=== PATIENT | female | born 1995 | race Caucasian/White ===

== ENCOUNTER 2018-09-12 07:41 | Emergency (ER) | payer MEDICAID ==
[~2018-09-12] VITALS: Ht 162.6 cm; Wt 122.5 kg
--- NOTE | 2018-09-12 08:03 | NUR ---
Dr Deleon at the bedside for MSE.
--- NOTE | 2018-09-12 08:13 | NUR ---
Patient discharged to home in stable conditon. Written and verbal after care instructions given. Patient verbalizes understanding of instructions.
[2018-09-12 08:15] VITALS: BP 144/87
== END 2018-09-12 08:16 | disposition home or self-care (01) ==
LOC: ER 07:41
DX: H11.32 Conjunctival hemorrhage, left eye (principal); F17.290 Nicotine dependence, other tobacco product, uncomplicated; Z88.8 Allergy status to other drugs, medicaments and biological substances
CPT/HCPCS: A4663

== ENCOUNTER 2018-10-05 03:58 | Emergency (ER) | payer MEDICAID ==
[~2018-10-05] VITALS: Ht 160 cm; Wt 119.7 kg
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
--- NOTE | 2018-10-05 04:29 | NUR ---
Patient taken to CT scan.
[2018-10-05] MEDS ORDERED: OXYCODONE/APAP 5-325 MG TABLET PO ONE (04:30)
[2018-10-05] MEDS ORDERED: ONDANSETRON ODT 4 MG TAB.RAPDIS SL ONE (04:30)
[2018-10-05] MEDS ORDERED: ONDANSETRON ODT 4 MG TAB.RAPDIS ONE (04:37)
[2018-10-05] MEDS ORDERED: OXYCODONE/APAP 5-325 MG TABLET ONE (04:37)
--- NOTE | 2018-10-05 05:25 | NUR ---
Patient discharged to home in stable conditon. Written and verbal after care instructions given. Patient verbalizes understanding of instructions. Patient ambulated out of ER with stable gait. Patient instructed not to drive.
[2018-10-05 05:27] VITALS: BP 110/82
== END 2018-10-05 05:27 | disposition home or self-care (01) ==
LOC: ER 03:59
DX: S00.83XA Contusion of other part of head, initial encounter (principal); F17.200 Nicotine dependence, unspecified, uncomplicated; Z88.1 Allergy status to other antibiotic agents; Z88.8 Allergy status to other drugs, medicaments and biological substances; Y04.2XXA Assault by strike against or bumped into by another person, initial encounter; Y93.89 Activity, other specified; Y92.89 Other specified places as the place of occurrence of the external cause; Y99.8 Other external cause status
CPT/HCPCS: 70450; A4663; Q0162

== ENCOUNTER 2018-11-21 12:25 | Emergency (ER) | payer MEDICAID ==
[~2018-11-21] VITALS: Ht 162.6 cm; Wt 115.7 kg
--- NOTE | 2018-11-21 12:51 | NUR ---
PT IS IN ROOM #1A. DR MORATAYA EVALUATED THE PT.
[2018-11-21] MEDS ORDERED: IBUPROFEN 600 MG TABLET ONE (12:56)
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
[2018-11-21] MEDS ORDERED: IBUPROFEN 600 MG TABLET PO ONE (13:00)
--- NOTE | 2018-11-21 13:33 | NUR ---
ACCORDING TO DR KIMBROUGH ORDER [employer] NON EMERGENCY DISPATCHER WAS CALLED. TALKED TO DISPATCHER #[id number].
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
--- NOTE | 2018-11-21 15:15 | NUR ---
Pt spoke with social psychologist and JONATHON (who came in person to speak with the pt). Patient discharged to home in stable conditon. Written and verbal after care instructions given. Patient verbalized understanding of instructions. Pt stated she will take the bus home.
== END 2018-11-21 15:17 | disposition home or self-care (01) ==
LOC: ER 12:25
DX: S40.012A Contusion of left shoulder, initial encounter (principal); S40.022A Contusion of left upper arm, initial encounter; F17.200 Nicotine dependence, unspecified, uncomplicated; Z88.8 Allergy status to other drugs, medicaments and biological substances; Y04.0XXA Assault by unarmed brawl or fight, initial encounter; Y93.89 Activity, other specified; Y92.89 Other specified places as the place of occurrence of the external cause; Y99.8 Other external cause status
CPT/HCPCS: 73010; 73060; A4663

== ENCOUNTER 2019-03-16 04:53 | Emergency (ER) | payer MEDICAID ==
[~2019-03-16] VITALS: Ht 162.6 cm; Wt 117.9 kg
[2019-03-16] MEDS ORDERED: CLON1TAB PO (05:04)
[2019-03-16] MEDS ORDERED: ARIP300S3 IM (05:04)
--- NOTE | 2019-03-16 05:13 | NUR ---
Dr. Plascencia at bedside for MSE.
--- NOTE | 2019-03-16 05:28 | NUR ---
Patient discharged to home in stable conditon. Written and verbal after care instructions given. Patient verbalizes understanding of instructions. Pt ambulated out of ER with steady gait, no acute signs of distress, VSS, all belongings taken.
[2019-03-16 05:29] VITALS: BP 159/98
== END 2019-03-16 05:30 | disposition home or self-care (01) ==
LOC: ER 04:55
DX: R00.2 Palpitations (principal); F15.10 Other stimulant abuse, uncomplicated; F41.9 Anxiety disorder, unspecified; F32.9 Major depressive disorder, single episode, unspecified; I10 Essential (primary) hypertension; F17.200 Nicotine dependence, unspecified, uncomplicated; Z88.8 Allergy status to other drugs, medicaments and biological substances; Z79.899 Other long term (current) drug therapy
CPT/HCPCS: 93005; A4663

== ENCOUNTER 2019-08-17 07:36 | Emergency (ER) | payer MEDICAID ==
[~2019-08-17] VITALS: Ht 160 cm; Wt 127.0 kg
[~2019-08-17 07:36] MED LIST: ARIP300S3 IM; CLON1TAB PO
[2019-08-17] MEDS ORDERED: DEXAMETHASONE SOD PHOSPHATE 4 MG INJ IM ONE (08:00)
[2019-08-17] MEDS ORDERED: IPRATROPIUM BROMIDE 0.5 MG/2.5 ML NEBU NEB ONE (08:00)
[2019-08-17] MEDS ORDERED: ALBUTEROL SULFATE 2.5 MG/3 ML NEBU NEB ONE (08:00)
[2019-08-17] MEDS ORDERED: ACETAMINOPHEN ES 500 MG TABLET PO ONE (08:00)
[2019-08-17] MEDS ORDERED: IBUPROFEN 800 MG TABLET PO ONE (08:00)
[2019-08-17] MEDS ORDERED: IBUPROFEN 800 MG TABLET ONE (08:18)
[2019-08-17] MEDS ORDERED: DEXAMETHASONE SOD PHOSPHATE 10 MG INJ ONE (08:19)
[2019-08-17] MEDS ORDERED: ACETAMINOPHEN ES 500 MG TABLET ONE (08:19)
--- NOTE | 2019-08-17 08:26 | NUR ---
pt is in room #1b. dr nagel evaluated the pt.
[2019-08-17] MEDS ORDERED: ALBUTEROL SULFATE 2.5 MG/3 ML NEBU ONE (08:44)
[2019-08-17] MEDS ORDERED: IPRATROPIUM BROMIDE 0.5 MG/2.5 ML NEBU ONE (08:44)
--- NOTE | 2019-08-17 09:17 | NUR ---
PT WAS D/C'd TO HOME AFTER DR BANGURA RE-EVALUATION. D/C INSTRUCTIONSGIVEN TO THE PT BY DR BANGURA.
[2019-08-17 09:19] VITALS: BP 137/81
== END 2019-08-17 09:19 | disposition home or self-care (01) ==
LOC: ER 07:36
DX: J20.9 Acute bronchitis, unspecified (principal); J01.90 Acute sinusitis, unspecified; E66.01 Morbid (severe) obesity due to excess calories; F41.9 Anxiety disorder, unspecified; F32.9 Major depressive disorder, single episode, unspecified; F17.290 Nicotine dependence, other tobacco product, uncomplicated; Z71.6 Tobacco abuse counseling; Z68.42 Body mass index [BMI] 45.0-49.9, adult; Z88.8 Allergy status to other drugs, medicaments and biological substances; Z79.899 Other long term (current) drug therapy
CPT/HCPCS: 71046; 94664; 96372; 99283; 99406; J1100; A4663; A9150; J3590

== ENCOUNTER 2019-08-19 10:52 | Emergency (ER) | payer MEDICAID ==
[~2019-08-19] VITALS: Ht 160 cm; Wt 127.0 kg
[2019-08-19] MEDS ORDERED: ALBUTEROL SULFATE 2.5 MG/3 ML NEBU NEB ONE (11:15)
[2019-08-19] MEDS ORDERED: IPRATROPIUM BROMIDE 0.5 MG/2.5 ML NEBU NEB ONE (11:15)
[2019-08-19] MEDS ORDERED: predniSONE 10 MG TABLET PO ONE (11:15)
[2019-08-19] MEDS ORDERED: KETOROLAC TROMETHAMINE 15 MG INJ IM ONE (11:15)
[2019-08-19] MEDS ORDERED: predniSONE 50 MG TABLET ONE (11:16)
[2019-08-19] MEDS ORDERED: predniSONE 10 MG TABLET ONE (11:16)
[2019-08-19] MEDS ORDERED: KETOROLAC TROMETHAMINE 15 MG INJ ONE (11:16)
[2019-08-19] MEDS ORDERED: IPRATROPIUM BROMIDE 0.5 MG/2.5 ML NEBU ONE (11:19)
[2019-08-19] MEDS ORDERED: ALBUTEROL SULFATE 2.5 MG/3 ML NEBU ONE (11:19)
--- NOTE | 2019-08-19 11:54 | NUR ---
Patient discharged to home in stable conditon. Written and verbal after care instructions given. Patient verbalizes understanding of instructions.pot walks in steady gait .pt says feels better. no sign of resp distress.
== END 2019-08-19 11:56 | disposition home or self-care (01) ==
LOC: ER 10:52
DX: J40 Bronchitis, not specified as acute or chronic (principal); F41.9 Anxiety disorder, unspecified; F32.9 Major depressive disorder, single episode, unspecified; F17.200 Nicotine dependence, unspecified, uncomplicated; Z88.8 Allergy status to other drugs, medicaments and biological substances; Z79.899 Other long term (current) drug therapy
CPT/HCPCS: 96372; 99283; J1885; J7512 ×2; A4663; J3590

== ENCOUNTER 2019-08-22 11:12 | Emergency (ER) | payer MEDICAID ==
[~2019-08-22] VITALS: Ht 160 cm; Wt 125.2 kg
--- NOTE | 2019-08-22 11:56 | NUR ---
PT IS IN ROOM #2B. DR THOMSON EVALUATED THE PT.
[2019-08-22 12:13] LABS: *MONOTEST NEGATIVE (NEGATIVE)
--- NOTE | 2019-08-22 12:23 | NUR ---
PT WAS D/C'd TO HOME. D/C INSTRUCTIONS GIVEN TO THE PT.
[2019-08-22 12:24] VITALS: BP 139/88
== END 2019-08-22 12:25 | disposition home or self-care (01) ==
LOC: ER 11:14
DX: J06.9 Acute upper respiratory infection, unspecified (principal); F32.9 Major depressive disorder, single episode, unspecified; F41.9 Anxiety disorder, unspecified; F17.200 Nicotine dependence, unspecified, uncomplicated; Z88.8 Allergy status to other drugs, medicaments and biological substances; Z79.899 Other long term (current) drug therapy
CPT/HCPCS: 36415; 86308; A4663

== ENCOUNTER 2019-10-12 17:58 | Emergency (ER) | payer MEDICAID ==
[~2019-10-12] VITALS: Ht 160 cm; Wt 127.0 kg
[2019-10-12] MEDS ORDERED: ALPRAZOLAM 0.5 MG TABLET ONE (18:27)
--- NOTE | 2019-10-12 18:27 | NUR ---
Patient was told and emphasis was given on following up with her primary doctors for anti-anxiety issues & anti-anxiety prescriptions. Excuse for work was given per patient's request. Patient discharged to home in stable condition with brisk steady gait. Written and verbal after care instructions were given to patient. Patient verbalized understanding and compliance of instructions. Patient said that she will not be driving home from our ER department.
[2019-10-12] MEDS ORDERED: ALPRAZOLAM 0.25 MG TABLET PO ONE (18:30)
== END 2019-10-12 18:31 | disposition home or self-care (01) ==
LOC: ER 18:00
DX: F41.9 Anxiety disorder, unspecified (principal); F32.9 Major depressive disorder, single episode, unspecified; F17.290 Nicotine dependence, other tobacco product, uncomplicated; Z88.8 Allergy status to other drugs, medicaments and biological substances; Z79.899 Other long term (current) drug therapy
CPT/HCPCS: A4663

== ENCOUNTER 2019-10-19 19:35 | Emergency (ER) | payer MEDICAID ==
[~2019-10-19] VITALS: Ht 160 cm; Wt 124.7 kg
[2019-10-19] MEDS ORDERED: IPRATROPIUM BROMIDE 0.5 MG/2.5 ML NEBU ONE (20:27)
[2019-10-19] MEDS ORDERED: ALBUTEROL SULFATE 2.5 MG/ 0.5 ML NEBU ONE (20:27)
[2019-10-19] MEDS ORDERED: ALBUTEROL SULFATE 2.5 MG/3 ML NEBU NEB ONE (20:30)
[2019-10-19] MEDS ORDERED: ACETAMINOPHEN ES 500 MG TABLET PO ONE (20:30)
[2019-10-19] MEDS ORDERED: GUAIFENESIN/CODEINE 5 ML LIQUID UDC PO ONE (20:30)
[2019-10-19] MEDS ORDERED: IPRATROPIUM BROMIDE 0.5 MG/2.5 ML NEBU NEB ONE (20:30)
[2019-10-19] MEDS ORDERED: predniSONE 10 MG TABLET PO ONE (20:30)
[2019-10-19] MEDS ORDERED: GUAIFENESIN/CODEINE 5 ML LIQUID UDC ONE (20:34)
[2019-10-19] MEDS ORDERED: predniSONE 20 MG TABLET ONE (20:34)
[2019-10-19] MEDS ORDERED: ACETAMINOPHEN ES 500 MG TABLET ONE (20:35)
--- NOTE | 2019-10-19 20:36 | NUR ---
PT IS IN ROOM #4A. DR FLOWERS EVALUATED THE PT.
--- NOTE | 2019-10-19 21:07 | NUR ---
PT WAS D/C'd TO HOME. D/C INSTRUCTIONS GIVEN TO THE PT BY DR FLOWERS
[2019-10-19 21:08] VITALS: BP 142/71
[2019-10-23] MEDS ORDERED: GUAI5SYR4 PO (16:48)
[2019-10-23] MEDS ORDERED: ALBU6.7H9 INH (16:48)
[2019-10-23] MEDS ORDERED: METH4TAB3 PO (16:48)
[2019-10-23] MEDS ORDERED: LEVO500T2 PO (16:48)
== END 2019-10-19 21:09 | disposition home or self-care (01) ==
LOC: ER 19:36
DX: J20.9 Acute bronchitis, unspecified (principal); F41.9 Anxiety disorder, unspecified; F33.9 Major depressive disorder, recurrent, unspecified; F17.290 Nicotine dependence, other tobacco product, uncomplicated; Z79.899 Other long term (current) drug therapy; Z71.6 Tobacco abuse counseling
CPT/HCPCS: 71045; 87400; 94640; 99284; 99406; J7512; A4663; A9150; J3590

== ENCOUNTER 2019-10-22 15:31 | Inpatient (IN) | payer OTHER ==
[~2019-10-22] VITALS: Ht 160 cm; Wt 101.6 kg
[2019-10-22] MEDS ORDERED: ALBUTEROL SULFATE 2.5 MG/3 ML NEBU NEB ONE ×2 (16:00→18:15)
[2019-10-22] MEDS ORDERED: IPRATROPIUM BROMIDE 0.5 MG/2.5 ML NEBU NEB ONE ×2 (16:00→18:15)
--- NOTE | 2019-10-22 16:12 | NUR ---
ERMD AT BEDSIDE FOR HX AND PHYSICAL PT AOX3 ABLE TO SPEAK CLEAR AND COMPLETE SENTENCES PT C/O COUGH, PRODUCTIVE AND CHEST CONGESTION PT DENIES FEVER/CHILLS DENIES RECENT TRAVELS
[2019-10-22] MEDS ORDERED: ALBUTEROL SULFATE 2.5 MG/3 ML NEBU ONE ×2 (16:18→18:20)
[2019-10-22] MEDS ORDERED: ALBUTEROL SULFATE 2.5 MG/ 0.5 ML NEBU ONE (16:18)
[2019-10-22] MEDS ORDERED: IPRATROPIUM BROMIDE 0.5 MG/2.5 ML NEBU ONE ×2 (16:18→18:20)
--- NOTE | 2019-10-22 16:25 | NUR ---
RT BREATHING TX STARTED
[2019-10-22] MEDS ORDERED: methylPREDNISolone SOD SUCC 125 MG/2 ML VIAL IV ONE (17:30)
[2019-10-22] MEDS ORDERED: MAGNESIUM SULFATE 2 GM in IV DEXTROSE 5% 100 ML IV ONE (17:30)
--- NOTE | 2019-10-22 17:35 | NUR ---
pt reports currently not taking any medications - she was on prednisone 40mg daily x 5d - prescribed on 10/19/19.
[2019-10-22 17:47] LABS: BASOPHILS # (AUTO) 0.1 K/uL (0.0-8.0); BASOPHILS % (AUTO) 0.7 % (0.0-2.0); EOSINOPHILS # (AUTO) 0.3 K/uL (0.0-0.7); HEMATOCRIT 46.7 % (31.2-41.9); HEMOGLOBIN 15.9 g/dL (10.9-14.3); LYMPHOCYTES # (AUTO) 3.9 K/uL (20.0-40.0); LYMPHOCYTES % (AUTO) 30.3 % (20.5-51.5); MEAN CORPUSCULAR HEMOGLOBIN 30.8 uug (24.7-32.8); MEAN CORPUSCULAR HGB CONC 34 g/dL (32.3-35.6); MEAN CORPUSCULAR VOLUME 90.5 fL (75.5-95.3); MONOCYTES # (AUTO) 0.8 K/uL (2.0-10.0); MONOCYTES % (AUTO) 6.5 % (0.0-11.0); NEUTROPHILS # (AUTO) 7.8 K/uL (1.8-8.9); NEUTROPHILS % (AUTO) 60.5 % (38.5-71.5); PLATELET COUNT (AUTO) 253 K/uL (179-408); RED BLOOD CELL COUNT(AUTO) 5.16 MIL/uL (3.63-4.92); WHITE BLOOD COUNT (AUTO) 12.9 K/uL (3.8-11.8)
[2019-10-22 17:54] LABS: CREATININE 0.9 mg/dL (0.6-1.3); POTASSIUM 3.6 mmol/L (3.5-5.1)
[2019-10-22] MEDS ORDERED: AZITHROMYCIN IV 500 MG in IV DEXTROSE 5% 250 ML IV ONE (18:15)
[2019-10-22] MEDS ORDERED: IV NORMAL SALINE 1000 ML BAG IV ONE (18:15)
[2019-10-22] MEDS ORDERED: CEFTRIAXONE 1 G in IV DEXTROSE 5% 50 ML IV ONE (18:15)
--- NOTE | 2019-10-22 18:15 | NUR ---
paged epic(veronika)
[2019-10-22] MEDS ORDERED: MAGNESIUM SULFATE 1 GM/2 ML VIAL ONE (18:19)
[2019-10-22] MEDS ORDERED: methylPREDNISolone SOD SUCC 125 MG/2 ML VIAL ONE (18:19)
--- NOTE | 2019-10-22 18:35 | NUR ---
WAITING BED AVAILABILITY OK FOR DR ASHUTOSH SEGUNDO TELE RM ADMIT DX: SOB/ PNEUMONIA
[2019-10-22] MEDS ORDERED: AZITHROMYCIN 500MG/ D5W 250ML IVPB **ER PYXIS ONLY IV ONE (18:40)
[2019-10-22] MEDS ORDERED: CEFTRIAXONE /D5W 50ML IVPB **ER PYXIS IV ONE (18:41)
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
--- NOTE | 2019-10-22 19:08 | NUR ---
[facility] (TELE) STILL NOT AVAILABLE FOR HAND OFF. WILL CALL BACK
[2019-10-22] MEDS ORDERED: ONDANSETRON ODT 4 MG TAB.RAPDIS SL PRN (19:30)
--- NOTE | 2019-10-22 19:48 | NUR ---
Report given to Razia Bryson RN Tele.
[2019-10-22] MEDS ORDERED: ONDANSETRON 4 MG/2 ML VIAL IV PRN (20:15)
[2019-10-22] MEDS ORDERED: HYDROCODONE/APAP 5-325MG TABLET PO PRN (20:15)
[2019-10-22] MEDS ORDERED: CLONAZEPAM 0.5 MG TABLET PO PRN (20:15)
[2019-10-22 20:19] VITALS: BP 113/85
--- NOTE | 2019-10-22 20:30 | NUR ---
PATIENT RECEIVED FROM ER. ID BAND ON. BELONGING LIST COMPLETED. WILL COMPLETE ADMISSIONS PROCESS. PATIENT TACHY ON MONITOR. BP, O2 SAT ON 2L, RR, STABLE AT THIS TIME. WILL COMPLETE NS BOLUS AND ANTIBIOTICS BROUGHT UP WITH PATIENT FROM ER.
[2019-10-22] MEDS: methylPREDNISolone SOD SUCC 40 MG/ML VIAL IV SCH (22:00)
[2019-10-22] MEDS: ACETAMINOPHEN 325 MG TABLET PO PRN (22:01)
--- NOTE | 2019-10-22 22:01 | NUR ---
C/O PAIN. TYLENOL ADMINISTERED. TOLERATED WELL. WILL CONTINUE TO MONITOR.
[2019-10-22] MEDS ORDERED: VALACYCLOVIR HCL 500 MG TABLET PO ONE (23:00)
[2019-10-23 00:46] VITALS: BP 101/40
[2019-10-23] MEDS: LEVALBUTEROL HCL NEB 0.63 MG/3 ML NEBU NEB PRN ×3 (02:03→12:08)
[2019-10-23] MEDS: IPRATROPIUM BROMIDE 0.5 MG/2.5 ML NEBU NEB PRN ×3 (02:03→12:07)
[2019-10-23] MEDS: ACETAMINOPHEN 325 MG TABLET PO PRN (04:14)
--- NOTE | 2019-10-23 04:38 | NUR ---
PATIENT V/S WNL AND NO SIGNS OF ACUTE DISTRESS. C/O OF HEADACHE. TYLENOL ADMINISTERED. TOLERATED WELL. BED IN LOWEST POSITION, SIDE RAILS UP X2, CALL LIGHT WITHIN REACH. NSR ON TELE MONITOR. WILL CONTINUE TO MONITOR.
[2019-10-23 05:01] VITALS: BP 105/54
[2019-10-23] MEDS: methylPREDNISolone SOD SUCC 40 MG/ML VIAL IV SCH ×2 (06:10→13:31)
--- NOTE | 2019-10-23 06:15 | NUR ---
c/o of pain. norco administered. tolerated well.
[2019-10-23 06:21] LABS: BILIRUBIN,TOTAL 0.1 mg/dL (0.2-1.0); CREATININE 0.8 mg/dL (0.6-1.3); MAGNESIUM 2.3 mg/dL (1.8-2.4); PHOSPHOROUS 2.1 mg/dL (2.5-4.9); POTASSIUM 4.1 mmol/L (3.5-5.1); TOTAL PROTEIN, SERUM 7.6 g/dL (6.4-8.2)
[2019-10-23 06:23] LABS: BASOPHILS % (AUTO) 0.2 % (0.0-2.0); EOSINOPHILS % (AUTO) 0.1 % (0.0-7.0); HEMATOCRIT 42.3 % (31.2-41.9); HEMOGLOBIN 14.6 g/dL (10.9-14.3); LYMPHOCYTES % (AUTO) 11.6 % (20.5-51.5); MEAN CORPUSCULAR HEMOGLOBIN 31.2 uug (24.7-32.8); MEAN CORPUSCULAR HGB CONC 34 g/dL (32.3-35.6); MEAN CORPUSCULAR VOLUME 90.5 fL (75.5-95.3); MONOCYTES # (AUTO) 0.2 K/uL (2.0-10.0); MONOCYTES % (AUTO) 2.3 % (0.0-11.0); NEUTROPHILS # (AUTO) 7.5 K/uL (1.8-8.9); NEUTROPHILS % (AUTO) 85.8 % (38.5-71.5); PLATELET COUNT (AUTO) 245 K/uL (179-408); RED BLOOD CELL COUNT(AUTO) 4.68 MIL/uL (3.63-4.92); WHITE BLOOD COUNT (AUTO) 8.7 K/uL (3.8-11.8)
[2019-10-23] MEDS ORDERED: PANTOPRAZOLE SODIUM 40 MG TABLET.DR PO SCH (07:00)
--- NOTE | 2019-10-23 07:30 | NUR ---
PATIENT IN BED ASLEEP, EASY TO AWAKE. AOX4. DENIES SOB OR CHEST PAIN AT THIS TIME. CONTINUES TO COMPLAIN OF HEAD ACHE AFTER TAKING TYLENAL AND NORCO THIS AM. LEFT HAND IV INTACT AND FLUSHED. SAFETY AND FALL PREVENTION IN PLACE. CALL LIGHT IN REACH. BED IN LOW AND LOCKED POSITION. ALL NEEDS MET AT THIS TIME. WILL CONTINUE TO MONITOR.
[2019-10-23] MEDS ORDERED: MORPHINE SULFATE 2 MG/1 ML DISP.SYRIN IV PRN (09:30)
[2019-10-23 11:44] VITALS: BP 117/66
[2019-10-23] MEDS ORDERED: NEUTRA PHOS PACKET PO ONE (15:30)
[2019-10-23 16:09] VITALS: BP 110/68
--- NOTE | 2019-10-23 19:43 | NUR ---
PT DISCHARGED ASSISTED BY OIL PROCESS STILLMAN. DISCHARGED PACKET AND INSTRUCTIONS GIVEN. PT UNDERSTAND. PT ID BAND TAKEN OFF. BELONGING LIST GIVEN. PT IV TAKE OFF. PT IN NO ACUTE DISTRESS. PT STABLE.
--- NOTE | 2019-10-23 19:45 | NUR ---
PATIENT DISCHARGED TO HOME-SELF CARE. PATIENT LEFT IN STABLE CONDITION AND TOOK UBER TO HOME. DISCHARGE INSTRUCTIONS WENT OVER WITH PATIENT AND SENT HOME WITH PATENT. BELONGINGS LIST WENT OVER WITH PATIENT. IV REMOVED UPON DISCHARGE AND ARMBAND TAKEN OFF. PATIENT REFUSED TO HAVE PICTURE TAKEN OF RIGHT FOOT STATING THAT ITS HEALING OK AND DOES NOT WANT BANDAID REMOVED.
== END 2019-10-23 20:03 | disposition home or self-care (01) | DRG 193 ==
LOC: ER 15:32 → TELE3 19:08 → MEDSURG3 10-23 10:49
PROVIDERS: ADMIT Internal Medicine; ATTEND Internal Medicine
DX: J18.0 Bronchopneumonia, unspecified organism (principal); J96.01 Acute respiratory failure with hypoxia; F17.210 Nicotine dependence, cigarettes, uncomplicated; G25.81 Restless legs syndrome; E66.9 Obesity, unspecified; Z68.39 Body mass index [BMI] 39.0-39.9, adult; F31.9 Bipolar disorder, unspecified; Z87.11 Personal history of peptic ulcer disease; Z79.899 Other long term (current) drug therapy; J45.909 Unspecified asthma, uncomplicated; E87.8 Other disorders of electrolyte and fluid balance, not elsewhere classified
CPT/HCPCS: 36415; 70030-TC; 71045; 83605; 83735; 84100; 84443; 85025; 87040; 93005; 94640; A4663; G0378; J0456; J0696; J2920; J2930; J3475; J3590; J7060; J7614

== ENCOUNTER 2020-04-12 01:57 | Emergency (ER) | payer OTHER ==
[~2020-04-12] VITALS: Ht 160 cm; Wt 124.7 kg
[~2020-04-12 01:57] MED LIST changes: +ALBU6.7H9 INH; -ARIP300S3 IM; -CLON1TAB PO; +GUAI5SYR4 PO; +LEVO500T2 PO; +METH4TAB3 PO
[2020-04-12] MEDS ORDERED: CLON0.1T PO (02:15)
[2020-04-12] MEDS ORDERED: SUMA50TA PO (02:15)
--- NOTE | 2020-04-12 02:23 | NUR ---
at bedside for MSE
--- NOTE | 2020-04-12 02:36 | NUR ---
Patient discharged to home in stable condition. Noted ambulating with steady gait, took all belongings with her. Written and verbal after care instructions given. Patient verbalizes understanding of instructions. Stressed follow up or return to ER for worsening s/s.
[2020-04-12 02:40] VITALS: BP 120/89
== END 2020-04-12 02:40 | disposition home or self-care (01) ==
LOC: ER 01:58
DX: J02.9 Acute pharyngitis, unspecified (principal); Z20.828 Contact with and (suspected) exposure to other viral communicable diseases; Z88.8 Allergy status to other drugs, medicaments and biological substances; F17.200 Nicotine dependence, unspecified, uncomplicated; G25.81 Restless legs syndrome; F31.9 Bipolar disorder, unspecified; F90.9 Attention-deficit hyperactivity disorder, unspecified type; Z79.899 Other long term (current) drug therapy; R03.0 Elevated blood-pressure reading, without diagnosis of hypertension
CPT/HCPCS: 99283; U0003; A4663

== ENCOUNTER 2020-05-05 11:01 | Emergency (ER) | payer OTHER ==
[~2020-05-05] VITALS: Ht 160 cm; Wt 124.7 kg
[~2020-05-05 11:01] MED LIST changes: -ALBU6.7H9 INH; +CLON0.1T PO; -GUAI5SYR4 PO; -LEVO500T2 PO; -METH4TAB3 PO; +SUMA50TA PO
--- NOTE | 2020-05-05 12:33 | NUR ---
O2 sat remained 100% during in place walking test. pt tolerated well.
--- NOTE | 2020-05-05 12:43 | NUR ---
Patient discharged to home in stable condition. Written and verbal after care instructions given. Patient verbalizes understanding of instructions. Stressed follow up or return to ER for worsening s/s.pt walks in steady gait. no sign of resp distress.
[2020-05-05 12:45] VITALS: BP 131/88
== END 2020-05-05 12:46 | disposition home or self-care (01) ==
LOC: ER 11:01
DX: R50.9 Fever, unspecified (principal); R49.0 Dysphonia; Z20.828 Contact with and (suspected) exposure to other viral communicable diseases
CPT/HCPCS: 0099U; 36415; 71045; 86403; 87070; 87400; 87426; 99284; A4663

== ENCOUNTER 2020-10-21 08:00 | Emergency (ER) | payer OTHER ==
[~2020-10-21] VITALS: Ht 165.1 cm; Wt 123.8 kg
--- NOTE | 2020-10-21 08:04 | NUR ---
MD@[email or web address], medical screening exam in progress
[2020-10-21] MEDS ORDERED: PSEUDOEPHEDRINE HCL 30 MG TABLET PO ONE (08:30)
[2020-10-21] MEDS ORDERED: predniSONE 20 MG TABLET PO ONE (08:30)
[2020-10-21] MEDS ORDERED: predniSONE 20 MG TABLET ONE (08:33)
[2020-10-21] MEDS ORDERED: PSEUDOEPHEDRINE HCL 30 MG TABLET ONE (08:33)
[2020-10-21] MEDS ORDERED: PRED20TA PO ×2 (08:38→08:44)
[2020-10-21] MEDS ORDERED: [UNRECOGNIZED DRUG - CODE] PO ×2 (08:38→08:44)
--- NOTE | 2020-10-21 08:57 | NUR ---
Dcereased coughing heard. Patient is seen using her personal electronic device, [employer].
--- NOTE | 2020-10-21 08:58 | NUR ---
Patient discharged to home in stable condition with brisk steady gait. Written and verbal after care instructions given. Patient verbalizes understanding & compliance of instructions. Stressed follow up with her primary doctor or return to ER for worsening s/s.
== END 2020-10-21 08:59 | disposition home or self-care (01) ==
LOC: ER 08:00
DX: J06.9 Acute upper respiratory infection, unspecified (principal); Z20.822 Contact with and (suspected) exposure to COVID-19; Z87.891 Personal history of nicotine dependence; F31.9 Bipolar disorder, unspecified; Z87.01 Personal history of pneumonia (recurrent); G25.81 Restless legs syndrome; F90.9 Attention-deficit hyperactivity disorder, unspecified type
CPT/HCPCS: 71045; 87400; 87426; 99284; J7512; A4663

== ENCOUNTER 2021-08-29 11:42 | Emergency (ER) | payer OTHER ==
[~2021-08-29] VITALS: Ht 160 cm; Wt 122.5 kg
[~2021-08-29 11:42] MED LIST changes: +PRED20TA PO; +[UNRECOGNIZED DRUG - CODE] PO
[2021-08-29] MEDS ORDERED: IBUPROFEN 800 MG TABLET PO ONE (12:30)
[2021-08-29] MEDS ORDERED: BENZONATATE 100 MG CAPSULE PO ONE (12:30)
[2021-08-29] MEDS ORDERED: IBUPROFEN 800 MG TABLET ONE (12:40)
[2021-08-29] MEDS ORDERED: BENZONATATE 100 MG CAPSULE ONE (12:40)
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
[2021-08-29] MEDS ORDERED: BENZ-13 PO (13:05)
[2021-08-29] MEDS ORDERED: IBUP-1955 PO (13:05)
--- NOTE | 2021-08-29 13:12 | NUR ---
Patient discharged to home in stable condition. Written and verbal after care instructions given. Patient verbalizes understanding of instructions. Stressed follow up or return to ER for worsening s/s.
[2021-08-29 13:15] VITALS: BP 108/54
== END 2021-08-29 13:16 | disposition home or self-care (01) ==
LOC: ER 11:43
DX: T74.11XA Adult physical abuse, confirmed, initial encounter (principal); S49.92XA Unspecified injury of left shoulder and upper arm, initial encounter; Y04.0XXA Assault by unarmed brawl or fight, initial encounter; Y92.89 Other specified places as the place of occurrence of the external cause; Y07.03 Male partner, perpetrator of maltreatment and neglect; R05.9 Cough, unspecified; Z20.822 Contact with and (suspected) exposure to COVID-19; Z88.8 Allergy status to other drugs, medicaments and biological substances; F31.9 Bipolar disorder, unspecified; F90.9 Attention-deficit hyperactivity disorder, unspecified type; Z87.01 Personal history of pneumonia (recurrent); G25.81 Restless legs syndrome; Z87.891 Personal history of nicotine dependence
CPT/HCPCS: 73030; A4663

== ENCOUNTER 2022-07-16 18:45 | Emergency (ER) | payer OTHER ==
[~2022-07-16] VITALS: Ht 165.1 cm; Wt 129.7 kg
[~2022-07-16 18:45] MED LIST changes: +BENZ-13 PO; +IBUP-1955 PO
--- NOTE | 2022-07-16 20:20 | NUR ---
Dr. Arredondo at bedside. MSE in progress.
--- NOTE | 2022-07-16 20:40 | NUR ---
x-ray at bedside.
[2022-07-16] MEDS ORDERED: ALBU8.5H8 INH (21:43)
[2022-07-16] MEDS ORDERED: GUAI-671 PO ×2 (21:43→23:11)
--- NOTE | 2022-07-16 21:51 | NUR ---
A/O x4. NAD noted. Ambulatory with a steady gait. All belongings with patient. Patient discharged to home in stable condition. Written and verbal after care instructions given. Patient verbalizes understanding of instructions. Stressed follow up or return to ER for worsening s/s.
[2022-07-16 21:54] VITALS: BP 140/80
== END 2022-07-16 21:55 | disposition home or self-care (01) ==
LOC: ER 18:45
DX: U07.1 COVID-19 (principal); J40 Bronchitis, not specified as acute or chronic; F41.9 Anxiety disorder, unspecified; F31.9 Bipolar disorder, unspecified; G25.81 Restless legs syndrome; Z88.1 Allergy status to other antibiotic agents; Z88.8 Allergy status to other drugs, medicaments and biological substances
CPT/HCPCS: 71045; A4663

== ENCOUNTER 2023-04-08 13:48 | Emergency (ER) | payer OTHER ==
[~2023-04-08] VITALS: Ht 160 cm; Wt 127.0 kg
[~2023-04-08 13:48] MED LIST changes: +ALBU8.5H8 INH; +GUAI-671 PO
[2023-04-08 15:32] LABS: *BILIRUBIN,URIN NEGATIVE (NEGATIVE); *BLOOD, URINE NEGATIVE (NEGATIVE); *CLARITY,URINE CLEAR (CLEAR); *COLOR,URINE Other (YELLOW); *KETONES,URINE NEGATIVE (NEGATIVE); *PROTEIN,URINE NEGATIVE (NEGATIVE); *UROBILINOGEN,URINE 0.2 E.U./dl (NORMAL); LEUKOCYTE ESTERASE ,URINE 2+ (NEGATIVE); NITRITE, URINE NEGATIVE (NEGATIVE); UGLUCOSE NEGATIVE (NEGATIVE)
[2023-04-08 15:34] LABS: HIV-1 p24 ANTIGEN NON REACTIVE (NONREACTIVE); HIV-1/2 ANTIBODY NON REACTIVE (NONREACTIVE)
[2023-04-08 16:15] VITALS: BP 131/83; O2SAT 96
[2023-04-08 16:27] LABS: BACTERIA,URINE MANY /HPF (NONE SEEN); RBC,URINE NONE SEEN /HPF (0-3); SQUAMOUS EPITHELIAL CELL,UR MANY /HPF (NONE SEEN)
[2023-04-08] MEDS ORDERED: METOCLOPRAMIDE HCL 10 MG/2 ML VIAL ONE (16:27)
[2023-04-08] MEDS ORDERED: KETOROLAC TROMETHAMINE 30 MG INJ ONE (16:27)
[2023-04-08] MEDS ORDERED: METOCLOPRAMIDE HCL 10 MG/2 ML VIAL IM ONE (16:30)
[2023-04-08] MEDS ORDERED: KETOROLAC TROMETHAMINE 30 MG INJ IM ONE (16:30)
[2023-04-08] MEDS ORDERED: METO-295 PO (16:33)
[2023-04-08] MEDS ORDERED: ACET-3478 PO (16:33)
[2023-04-10 23:06] LABS: *CHLAMYDIA NAA Negative (Negative); *GC NAA Negative (Negative)
[2023-04-11 02:06] LABS: *TRIC.VAG. NAA Negative (Negative)
== END 2023-04-08 16:43 | disposition home or self-care (01) ==
LOC: ER 13:54
DX: T14.8XXA Other injury of unspecified body region, initial encounter (principal); M25.511 Pain in right shoulder; R10.2 Pelvic and perineal pain; Z88.1 Allergy status to other antibiotic agents; Z88.8 Allergy status to other drugs, medicaments and biological substances; Z79.899 Other long term (current) drug therapy; Z79.1 Long term (current) use of non-steroidal anti-inflammatories (NSAID); Y04.2XXA Assault by strike against or bumped into by another person, initial encounter; Y93.89 Activity, other specified; Y92.89 Other specified places as the place of occurrence of the external cause; Y99.8 Other external cause status
CPT/HCPCS: 99284; 86592; 81001; 87806; 84702; 72170; 73030; 96372 ×2; 87491; 87536; J1885; J2765; A4663

== ENCOUNTER 2023-06-03 20:38 | Emergency (ER) | payer MEDICAID, OTHER ==
[~2023-06-03] VITALS: Ht 160 cm; Wt 127.0 kg
[~2023-06-03 20:38] MED LIST changes: +ACET-3478 PO; +METO-295 PO
[2023-06-03] MEDS ORDERED: ONDANSETRON 4 MG/2 ML VIAL IV ONE (21:00)
[2023-06-03] MEDS ORDERED: HYDROMORPHONE 1 MG/1 ML DISP.SYRIN IV ONE ×2 (21:00→22:45)
[2023-06-03] MEDS ORDERED: VANCOMYCIN IV 1,000 MG in IV DEXTROSE 5% 250 ML IV ONE (21:00)
[2023-06-03] MEDS ORDERED: ONDANSETRON 4 MG/2 ML VIAL ONE (21:09)
[2023-06-03] MEDS ORDERED: HYDROMORPHONE 1 MG/1 ML DISP.SYRIN ONE ×2 (21:09→22:42)
[2023-06-03] MEDS ORDERED: VANCOMYCIN IV 200 ML ONE (21:10)
[2023-06-03 21:50] LABS: BASOPHILS # (AUTO) 0.1 K/UL (0.0-0.2); BASOPHILS % (AUTO) 0.7 % (0.0-2.0); EOSINOPHILS # (AUTO) 0.3 K/uL (0.0-0.7); EOSINOPHILS % (AUTO) 2.9 % (0.0-7.0); HEMATOCRIT 30.7 % (31.2-41.9); HEMOGLOBIN 10.4 g/dL (10.9-14.3); LYMPHOCYTES # (AUTO) 1.8 K/uL (0.8-4.8); LYMPHOCYTES % (AUTO) 17.1 % (20.5-51.5); MEAN CORPUSCULAR HEMOGLOBIN 31.3 uug (24.7-32.8); MEAN CORPUSCULAR HGB CONC 34 g/dL (32.3-35.6); MEAN CORPUSCULAR VOLUME 92.9 fL (75.5-95.3); MONOCYTES # (AUTO) 0.5 K/uL (0.1-1.30); NEUTROPHILS % (AUTO) 74.3 % (38.5-71.5); PLATELET COUNT (AUTO) 305 K/uL (179-408); RED BLOOD CELL COUNT(AUTO) 3.31 MIL/uL (3.63-4.92); RED CELL DISTRIBUTION WIDTH 13.9 % (12.3-17.7); WHITE BLOOD COUNT (AUTO) 10.7 K/uL (3.8-11.8)
[2023-06-03 22:33] LABS: DIFFERENTIAL COMMENT 1
[2023-06-03 22:40] LABS: CALCIUM 8.5 mg/dL (8.5-10.1); CREATININE 0.7 mg/dL (0.6-1.3); POTASSIUM 3.8 mmol/L (3.5-5.1)
[2023-06-03 23:25] VITALS: BP 132/78; TEMP 98.3; O2SAT 100
== END 2023-06-03 23:27 | disposition left against medical advice (07) ==
LOC: ER 20:38
DX: L03.317 Cellulitis of buttock (principal); T81.49XA Infection following a procedure, other surgical site, initial encounter; F17.210 Nicotine dependence, cigarettes, uncomplicated; Z71.6 Tobacco abuse counseling; Z88.8 Allergy status to other drugs, medicaments and biological substances; Z79.1 Long term (current) use of non-steroidal anti-inflammatories (NSAID); Z79.899 Other long term (current) drug therapy
CPT/HCPCS: 99284; 96365; 96375; 96366; 99406; 80048; 85025; 87040 ×2; 36415; 96376; J2405; J3370; J1170 ×2; A4606; A4663

== ENCOUNTER 2023-06-09 03:03 | Emergency (ER) | payer BC, MEDICAID ==
[~2023-06-09] VITALS: Ht 157.5 cm; Wt 127.0 kg
[2023-06-09] MEDS ORDERED: OXYC15TA46 PO (03:31)
[2023-06-09] MEDS ORDERED: bactrim PO (03:31)
[2023-06-09] MEDS ORDERED: IV NORMAL SALINE 1000 ML BAG IV ONE (04:00)
[2023-06-09] MEDS ORDERED: HYDROMORPHONE 1 MG/1 ML DISP.SYRIN IV ONE ×2 (04:00→05:45)
[2023-06-09] MEDS ORDERED: diphenhydrAMINE 50 MG/1 ML VIAL IV ONE (04:00)
[2023-06-09] MEDS ORDERED: diphenhydrAMINE 50 MG/1 ML VIAL ONE (04:25)
[2023-06-09] MEDS ORDERED: HYDROMORPHONE 1 MG/1 ML DISP.SYRIN ONE ×2 (04:25→05:42)
[2023-06-09] MEDS ORDERED: ONDANSETRON 4 MG/2 ML VIAL IV ONE ×2 (04:45→05:45)
[2023-06-09] MEDS ORDERED: ONDANSETRON 4 MG/2 ML VIAL ONE ×2 (04:47→05:42)
[2023-06-09] MEDS ORDERED: SWABABLE VALVE TRANSFER SET EA MC ONE (04:54)
[2023-06-09] MEDS ORDERED: IOHEXOL 300MG/ML 100 ML INFUS..BTL ONE (04:54)
[2023-06-09] MEDS ORDERED: IV NORMAL SALINE 250 ML IV ONE (04:55)
[2023-06-09 05:08] LABS: BASOPHILS # (AUTO) 0.1 K/UL (0.0-0.2); BASOPHILS % (AUTO) 1.2 % (0.0-2.0); EOSINOPHILS # (AUTO) 0.4 K/uL (0.0-0.7); EOSINOPHILS % (AUTO) 4.7 % (0.0-7.0); HEMATOCRIT 35.9 % (31.2-41.9); HEMOGLOBIN 12.3 g/dL (10.9-14.3); LYMPHOCYTES # (AUTO) 1.9 K/uL (0.8-4.8); MEAN CORPUSCULAR HEMOGLOBIN 31.4 uug (24.7-32.8); MEAN CORPUSCULAR HGB CONC 34 g/dL (32.3-35.6); MONOCYTES # (AUTO) 0.6 K/uL (0.1-1.30); MONOCYTES % (AUTO) 7.8 % (0.0-11.0); NEUTROPHILS # (AUTO) 4.9 K/uL (1.8-8.9); NEUTROPHILS % (AUTO) 62.3 % (38.5-71.5); PLATELET COUNT (AUTO) 337 K/uL (179-408); RED BLOOD CELL COUNT(AUTO) 3.91 MIL/uL (3.63-4.92); RED CELL DISTRIBUTION WIDTH 13.6 % (12.3-17.7); WHITE BLOOD COUNT (AUTO) 7.9 K/uL (3.8-11.8)
[2023-06-09 05:21] LABS: CALCIUM 8.5 mg/dL (8.5-10.1); CARBON DIOXIDE 25 mmol/L (21-32); CHLORIDE 103 mmol/L (98-107); CREATININE 0.7 mg/dL (0.6-1.3); GLUCOSE 103 mg/dL (74-106); POTASSIUM 3.5 mmol/L (3.5-5.1); SODIUM SERUM 140 mmol/L (136-145); UREA NITROGEN, BLOOD 8 mg/dL (7-18)
[2023-06-09 05:30] LABS: DIFFERENTIAL COMMENT 1
[2023-06-09 05:31] LABS: *BILIRUBIN,URIN NEGATIVE (NEGATIVE); *BLOOD, URINE NEGATIVE (NEGATIVE); *CLARITY,URINE CLEAR (CLEAR); *COLOR,URINE YELLOW (YELLOW); *KETONES,URINE NEGATIVE (NEGATIVE); *PROTEIN,URINE TRACE (NEGATIVE); *UROBILINOGEN,URINE 0.2 E.U./dl (NORMAL); LEUKOCYTE ESTERASE ,URINE NEGATIVE (NEGATIVE); NITRITE, URINE NEGATIVE (NEGATIVE); PH,URINE 6.5 (5.0-8.0); UGLUCOSE NEGATIVE (NEGATIVE)
[2023-06-09 05:35] LABS: ALANINE AMINOTRANSFERASE 35 U/L (14-59); ALBUMIN 3.5 g/dL (3.4-5.0); ALKALINE PHOSPHATASE 133 U/L (50-136); ASPARTATE AMINOTRANSFERASE 20 U/L (15-37); BILIRUBIN,DIRECT 0.1 mg/dL (0.0-0.2); BILIRUBIN,TOTAL 0.3 mg/dL (0.2-1.0); NT-PRO BNP 69 pg/mL (0-125); TOTAL PROTEIN, SERUM 7.5 g/dL (6.4-8.2)
[2023-06-09 05:55] VITALS: BP 130/90; TEMP 98.9; O2SAT 99
== END 2023-06-09 05:56 | disposition home or self-care (01) ==
LOC: ER 03:05
DX: T81.49XA Infection following a procedure, other surgical site, initial encounter (principal); R10.2 Pelvic and perineal pain; F17.210 Nicotine dependence, cigarettes, uncomplicated; Z88.8 Allergy status to other drugs, medicaments and biological substances; Z79.1 Long term (current) use of non-steroidal anti-inflammatories (NSAID); Z79.899 Other long term (current) drug therapy; Z96.641 Presence of right artificial hip joint
CPT/HCPCS: 99285; 96374; 72193; 96375; 96361; 80076; 80048; 81003; 83880; 85025; 84145; 85730; 87040 ×2; 84484; 84702; 36415; 93005; 96376; 83605; 87086; J1200; J2405 ×2; Q9967; J1170 ×2; J7040; A4606; A4663

== ENCOUNTER 2023-06-26 01:17 | Emergency (ER) | payer BC, MEDICAID ==
[~2023-06-26] VITALS: Ht 160 cm; Wt 127.0 kg
[~2023-06-26 01:17] MED LIST changes: +OXYC15TA46 PO; +bactrim PO
[2023-06-26 01:21] VITALS: O2SAT 99
[2023-06-26] MEDS ORDERED: KETOROLAC TROMETHAMINE 60 MG INJ IM ONE ×2 (02:15→02:45)
[2023-06-26] MEDS ORDERED: ONDANSETRON HCL 4 MG TABLET PO ONE (02:15)
[2023-06-26] MEDS ORDERED: HYDROMORPHONE 1 MG/1 ML DISP.SYRIN IM ONE (02:15)
[2023-06-26] MEDS ORDERED: ONDANSETRON HCL 4 MG TABLET ONE ×2 (02:44→02:45)
[2023-06-26] MEDS ORDERED: HYDROMORPHONE 1 MG/1 ML DISP.SYRIN ONE (02:46)
[2023-06-26] MEDS ORDERED: HYDROMORPHONE 2 MG/1 ML DISP.SYRIN ONE ×2 (02:53→02:54)
[2023-06-26 02:57] LABS: BASOPHILS # (AUTO) 0.1 K/UL (0.0-0.2); BASOPHILS % (AUTO) 0.8 % (0.0-2.0); EOSINOPHILS # (AUTO) 0.4 K/uL (0.0-0.7); EOSINOPHILS % (AUTO) 5.5 % (0.0-7.0); HEMATOCRIT 40.1 % (31.2-41.9); HEMOGLOBIN 13.3 g/dL (10.9-14.3); LYMPHOCYTES # (AUTO) 1.7 K/uL (0.8-4.8); LYMPHOCYTES % (AUTO) 24.2 % (20.5-51.5); MEAN CORPUSCULAR HEMOGLOBIN 30.6 uug (24.7-32.8); MEAN CORPUSCULAR HGB CONC 33 g/dL (32.3-35.6); MEAN CORPUSCULAR VOLUME 92.1 fL (75.5-95.3); MONOCYTES # (AUTO) 0.4 K/uL (0.1-1.30); MONOCYTES % (AUTO) 5.9 % (0.0-11.0); NEUTROPHILS # (AUTO) 4.6 K/uL (1.8-8.9); NEUTROPHILS % (AUTO) 63.6 % (38.5-71.5); PLATELET COUNT (AUTO) 263 K/uL (179-408); RED BLOOD CELL COUNT(AUTO) 4.35 MIL/uL (3.63-4.92); WHITE BLOOD COUNT (AUTO) 7.2 K/uL (3.8-11.8)
[2023-06-26 03:03] LABS: DIFFERENTIAL COMMENT 1
[2023-06-26 03:06] LABS: CALCIUM 9.1 mg/dL (8.5-10.1); CARBON DIOXIDE 25 mmol/L (21-32); CHLORIDE 103 mmol/L (98-107); CREATININE 0.7 mg/dL (0.6-1.3); GLUCOSE 105 mg/dL (74-106); SODIUM SERUM 137 mmol/L (136-145); UREA NITROGEN, BLOOD 8 mg/dL (7-18)
[2023-06-26 03:20] LABS: ALANINE AMINOTRANSFERASE 40 U/L (14-59); ALBUMIN 3.7 g/dL (3.4-5.0); ALKALINE PHOSPHATASE 127 U/L (50-136); ASPARTATE AMINOTRANSFERASE 28 U/L (15-37); BILIRUBIN,DIRECT 0.1 mg/dL (0.0-0.2); BILIRUBIN,TOTAL 0.3 mg/dL (0.2-1.0); TOTAL PROTEIN, SERUM 7.8 g/dL (6.4-8.2)
[2023-06-26 03:22] LABS: ACETAMINOPHEN < 2.0 ug/mL (10-30)
[2023-06-26] MEDS ORDERED: HYDR4TAB4 PO (03:26)
[2023-06-26 03:49] VITALS: BP 132/110
== END 2023-06-26 03:45 | disposition home or self-care (01) ==
LOC: ER 01:19
DX: S80.11XA Contusion of right lower leg, initial encounter (principal); E66.01 Morbid (severe) obesity due to excess calories; Z68.42 Body mass index [BMI] 45.0-49.9, adult; F17.210 Nicotine dependence, cigarettes, uncomplicated; Z88.8 Allergy status to other drugs, medicaments and biological substances; Z79.899 Other long term (current) drug therapy; W01.0XXA Fall on same level from slipping, tripping and stumbling without subsequent striking against object, initial encounter; Y93.89 Activity, other specified; Y92.89 Other specified places as the place of occurrence of the external cause; Y99.8 Other external cause status
CPT/HCPCS: 99284; 80076; 80048; 85025; 36415; 96372 ×2; 80299; J1885; J1170 ×2; A4606; A4663; Q0162

== ENCOUNTER 2023-07-01 13:51 | Emergency (ER) | payer BC, OTHER ==
[~2023-07-01] VITALS: Ht 157.5 cm; Wt 127.0 kg
[~2023-07-01 13:51] MED LIST changes: +HYDR4TAB4 PO
[2023-07-01 14:07] VITALS: O2SAT 100
[2023-07-01] MEDS ORDERED: PREG50CA PO (14:15)
[2023-07-01] MEDS ORDERED: OXYC-133 PO (14:15)
[2023-07-01] MEDS ORDERED: diphenhydrAMINE 50 MG/1 ML VIAL ONE (15:00)
[2023-07-01] MEDS ORDERED: diphenhydrAMINE 50 MG/1 ML VIAL IM ONE (15:00)
[2023-07-01] MEDS ORDERED: KETOROLAC TROMETHAMINE 60 MG INJ IM ONE ×2 (15:00→15:01)
[2023-07-01 15:36] LABS: *URINE HCG, QUAL NEGATIVE (NEGATIVE)
== END 2023-07-01 17:28 | disposition home or self-care (01) ==
LOC: ER 13:57
DX: M25.551 Pain in right hip (principal); J40 Bronchitis, not specified as acute or chronic; M54.2 Cervicalgia; R10.2 Pelvic and perineal pain; F31.9 Bipolar disorder, unspecified; F41.9 Anxiety disorder, unspecified; E66.9 Obesity, unspecified; Z79.899 Other long term (current) drug therapy; F17.200 Nicotine dependence, unspecified, uncomplicated; Z88.1 Allergy status to other antibiotic agents
CPT/HCPCS: 99285; 72125; 84703; 72192; 96372; J1200; J1885; A4606; A4663

== ENCOUNTER 2023-07-03 00:43 | Emergency (ER) | payer BC, MEDICAID ==
[~2023-07-03] VITALS: Ht 160 cm; Wt 127.0 kg
[~2023-07-03 00:43] MED LIST changes: -ACET-3478 PO; -BENZ-13 PO; -CLON0.1T PO; -GUAI-671 PO; -HYDR4TAB4 PO; -IBUP-1955 PO; -METO-295 PO; +OXYC-133 PO; -OXYC15TA46 PO; -PRED20TA PO; +PREG50CA PO; -[UNRECOGNIZED DRUG - CODE] PO; -bactrim PO
[2023-07-03 01:22] LABS: BASOPHILS # (AUTO) 0.1 K/UL (0.0-0.2); BASOPHILS % (AUTO) 0.7 % (0.0-2.0); EOSINOPHILS # (AUTO) 0.3 K/uL (0.0-0.7); EOSINOPHILS % (AUTO) 3.9 % (0.0-7.0); HEMATOCRIT 38.7 % (31.2-41.9); HEMOGLOBIN 13.1 g/dL (10.9-14.3); LYMPHOCYTES # (AUTO) 2.4 K/uL (0.8-4.8); LYMPHOCYTES % (AUTO) 28.7 % (20.5-51.5); MEAN CORPUSCULAR HEMOGLOBIN 30.7 uug (24.7-32.8); MEAN CORPUSCULAR HGB CONC 34 g/dL (32.3-35.6); MEAN CORPUSCULAR VOLUME 90.6 fL (75.5-95.3); MONOCYTES # (AUTO) 0.4 K/uL (0.1-1.30); MONOCYTES % (AUTO) 5.2 % (0.0-11.0); NEUTROPHILS # (AUTO) 5.2 K/uL (1.8-8.9); NEUTROPHILS % (AUTO) 61.5 % (38.5-71.5); PLATELET COUNT (AUTO) 286 K/uL (179-408); RED BLOOD CELL COUNT(AUTO) 4.27 MIL/uL (3.63-4.92); RED CELL DISTRIBUTION WIDTH 13.5 % (12.3-17.7); WHITE BLOOD COUNT (AUTO) 8.4 K/uL (3.8-11.8)
[2023-07-03 01:26] LABS: DIFFERENTIAL COMMENT 1
[2023-07-03 01:33] LABS: CALCIUM 8.7 mg/dL (8.5-10.1); CREATININE 0.7 mg/dL (0.6-1.3); POTASSIUM 4.3 mmol/L (3.5-5.1)
[2023-07-03] MEDS ORDERED: diphenhydrAMINE 50 MG/1 ML VIAL ONE (01:33)
[2023-07-03] MEDS ORDERED: METOCLOPRAMIDE HCL 10 MG/2 ML VIAL ONE (01:33)
[2023-07-03] MEDS ORDERED: METO-295 PO (01:37)
[2023-07-03] MEDS: IV NORMAL SALINE 1000 ML BAG IV ONE (01:39)
[2023-07-03] MEDS: diphenhydrAMINE 50 MG/1 ML VIAL IV ONE (01:40)
[2023-07-03] MEDS: METOCLOPRAMIDE HCL 10 MG/2 ML VIAL IV ONE (01:41)
[2023-07-03] MEDS ORDERED: OXYCODONE/APAP 5-325 MG TABLET ONE (02:06)
[2023-07-03] MEDS: OXYCODONE/APAP 5-325 MG TABLET PO ONE (02:11)
[2023-07-03 02:28] VITALS: BP 115/67; O2SAT 100
== END 2023-07-03 02:32 | disposition home or self-care (01) ==
LOC: ER 00:45
DX: R11.2 Nausea with vomiting, unspecified (principal); J40 Bronchitis, not specified as acute or chronic; F31.9 Bipolar disorder, unspecified; F41.9 Anxiety disorder, unspecified; E66.9 Obesity, unspecified; F17.200 Nicotine dependence, unspecified, uncomplicated; Z79.899 Other long term (current) drug therapy; Z88.1 Allergy status to other antibiotic agents
CPT/HCPCS: 99284; 96374; 96361; 96375; 80048; 85025; 36415; J1200; J2765; J7040; A4606; A4663

== ENCOUNTER 2023-07-20 15:12 | Emergency (ER) | payer BC, MEDICAID ==
[~2023-07-20] VITALS: Ht 160 cm; Wt 127.0 kg
[~2023-07-20 15:12] MED LIST changes: +METO-295 PO
[2023-07-20 15:42] VITALS: O2SAT 0
== END 2023-07-20 15:39 | disposition left against medical advice (07) ==
LOC: ER 15:12
DX: Z53.21 Procedure and treatment not carried out due to patient leaving prior to being seen by health care provider (principal)

== ENCOUNTER 2023-09-14 01:43 | Emergency (ER) | payer BC, MEDICAID, OTHER ==
[~2023-09-14] VITALS: Ht 160 cm; Wt 127.0 kg
[2023-09-14] MEDS ORDERED: HYDROMORPHONE HCL 2 MG TABLET PO ONE (03:45)
[2023-09-14] MEDS ORDERED: HYDROMORPHONE HCL 2 MG TABLET ONE (03:45)
[2023-09-14 04:24] VITALS: BP 128/66; O2SAT 97
== END 2023-09-14 04:25 | disposition home or self-care (01) ==
LOC: ER 01:47
DX: G89.29 Other chronic pain (principal); M25.551 Pain in right hip; F11.20 Opioid dependence, uncomplicated; F41.9 Anxiety disorder, unspecified; F31.9 Bipolar disorder, unspecified; E66.9 Obesity, unspecified; F17.200 Nicotine dependence, unspecified, uncomplicated; Z79.899 Other long term (current) drug therapy; Z68.42 Body mass index [BMI] 45.0-49.9, adult; Z88.1 Allergy status to other antibiotic agents
CPT/HCPCS: 72170; 73502; A4606; A4663

== ENCOUNTER 2023-12-13 16:18 | Emergency (ER) | payer OTHER ==
[~2023-12-13] VITALS: Ht 160 cm; Wt 131.5 kg
[2023-12-13] MEDS ORDERED: FLUT16SP BNOSTRILS (19:04)
[2023-12-13] MEDS ORDERED: [UNRECOGNIZED DRUG - CODE] NS (19:04)
[2023-12-13] MEDS ORDERED: IPRA42SP NS (19:04)
[2023-12-13 19:15] VITALS: BP 121/69; TEMP 98.5; O2SAT 99
== END 2023-12-13 19:15 | disposition home or self-care (01) ==
LOC: ER 16:20
DX: J06.9 Acute upper respiratory infection, unspecified (principal); J02.9 Acute pharyngitis, unspecified; F31.9 Bipolar disorder, unspecified; F17.200 Nicotine dependence, unspecified, uncomplicated; Z98.890 Other specified postprocedural states; Z79.899 Other long term (current) drug therapy; Z88.1 Allergy status to other antibiotic agents
CPT/HCPCS: A4606; A4663

== ENCOUNTER 2024-01-17 20:27 | Emergency (ER) | payer OTHER ==
[~2024-01-17] VITALS: Ht 160 cm; Wt 117.9 kg
[~2024-01-17 20:27] MED LIST changes: +FLUT16SP BNOSTRILS; +IPRA42SP NS; +[UNRECOGNIZED DRUG - CODE] NS
[2024-01-17 20:35] VITALS: O2SAT 99
[2024-01-17] MEDS ORDERED: ONDANSETRON 4 MG/2 ML VIAL ONE (22:03)
[2024-01-17] MEDS ORDERED: KETOROLAC TROMETHAMINE 30 MG INJ ONE (22:03)
[2024-01-17 22:43] LABS: *BILIRUBIN,URIN NEGATIVE (NEGATIVE); *BLOOD, URINE NEGATIVE (NEGATIVE); *CLARITY,URINE CLEAR (CLEAR); *COLOR,URINE YELLOW (YELLOW); *KETONES,URINE NEGATIVE (NEGATIVE); *PROTEIN,URINE NEGATIVE (NEGATIVE); *UROBILINOGEN,URINE 0.2 E.U./dl (NORMAL); LEUKOCYTE ESTERASE ,URINE NEGATIVE (NEGATIVE); NITRITE, URINE NEGATIVE (NEGATIVE); PH,URINE 8.5 (5.0-8.0); UGLUCOSE NEGATIVE (NEGATIVE)
[2024-01-17] MEDS: IV NS 1000 ML 1,000 ML IV ONE (22:45)
[2024-01-17] MEDS: KETOROLAC TROMETHAMINE 30 MG INJ IVP ONE (22:45)
[2024-01-17] MEDS ORDERED: MORPHINE SULFATE 2 MG/1 ML DISP.SYRIN ONE (22:46)
[2024-01-17 22:48] LABS: BASOPHILS % (AUTO) 0.4 % (0.0-2.0); EOSINOPHILS # (AUTO) 0.2 K/uL (0.0-0.7); EOSINOPHILS % (AUTO) 1.7 % (0.0-7.0); HEMATOCRIT 43.9 % (31.2-41.9); HEMOGLOBIN 14.5 g/dL (10.9-14.3); LYMPHOCYTES # (AUTO) 2.4 K/uL (0.8-4.8); LYMPHOCYTES % (AUTO) 19.2 % (20.5-51.5); MEAN CORPUSCULAR HGB CONC 33 g/dL (32.3-35.6); MEAN CORPUSCULAR VOLUME 90.9 fL (75.5-95.3); MONOCYTES # (AUTO) 0.7 K/uL (0.1-1.30); MONOCYTES % (AUTO) 5.5 % (0.0-11.0); NEUTROPHILS # (AUTO) 9.1 K/uL (1.8-8.9); NEUTROPHILS % (AUTO) 73.2 % (38.5-71.5); PLATELET COUNT (AUTO) 245 K/uL (179-408); RED BLOOD CELL COUNT(AUTO) 4.83 MIL/uL (3.63-4.92); RED CELL DISTRIBUTION WIDTH 13.7 % (12.3-17.7); WHITE BLOOD COUNT (AUTO) 12.4 K/uL (3.8-11.8)
[2024-01-17 22:48] LABS: *URINE HCG, QUAL NEGATIVE (NEGATIVE)
[2024-01-17] MEDS: ONDANSETRON 4 MG/2 ML VIAL IV ONE (22:50)
[2024-01-17] MEDS: MORPHINE SULFATE 2 MG/1 ML DISP.SYRIN IV ONE (22:51)
[2024-01-17 22:57] LABS: *AMPHETAMINE, URINE NEGATIVE (NEGATIVE); *BARBITURATE, URINE NEGATIVE (NEGATIVE); *BENZODIAZEPINE, URINE NEGATIVE (NEGATIVE); *CANNABINOID, URINE NEGATIVE (NEGATIVE); *COCCAINE, URINE NEGATIVE (NEGATIVE); *OPIATE, URINE NEGATIVE (NEGATIVE); *PHENCYCLIDINE SCREEN,URINE NEGATIVE (NEGATIVE); FENTANYL, URINE NEGATIVE (NEGATIVE)
[2024-01-17 22:57] LABS: CALCIUM 8.9 mg/dL (8.5-10.1); CREATININE 0.7 mg/dL (0.6-1.3); POTASSIUM 3.8 mmol/L (3.5-5.1)
[2024-01-17 22:59] LABS: DIFFERENTIAL COMMENT 1
[2024-01-17 23:03] LABS: ALBUMIN 3.6 g/dL (3.4-5.0); BILIRUBIN,TOTAL 0.3 mg/dL (0.2-1.0); TOTAL PROTEIN, SERUM 7.5 g/dL (6.4-8.2)
== END 2024-01-17 23:40 | disposition left against medical advice (07) ==
LOC: ER 20:28
DX: R10.13 Epigastric pain (principal); R11.2 Nausea with vomiting, unspecified; F17.210 Nicotine dependence, cigarettes, uncomplicated; Z88.8 Allergy status to other drugs, medicaments and biological substances; Z79.899 Other long term (current) drug therapy
CPT/HCPCS: 36415; 83605; 83690; 84703; 85025; 87040; A4606; A4663; J1885; J2270; J2405; J7040

== ENCOUNTER 2024-02-29 14:50 | Emergency (ER) | payer OTHER ==
[~2024-02-29] VITALS: Ht 162.6 cm; Wt 124.7 kg
[2024-02-29 15:41] LABS: BASOPHILS # (AUTO) 0.1 K/UL (0.0-0.2); BASOPHILS % (AUTO) 0.7 % (0.0-2.0); EOSINOPHILS # (AUTO) 0.5 K/uL (0.0-0.7); EOSINOPHILS % (AUTO) 4.7 % (0.0-7.0); HEMATOCRIT 45.8 % (31.2-41.9); HEMOGLOBIN 15.2 g/dL (10.9-14.3); LYMPHOCYTES # (AUTO) 1.8 K/uL (0.8-4.8); LYMPHOCYTES % (AUTO) 18.6 % (20.5-51.5); MEAN CORPUSCULAR HEMOGLOBIN 30.8 uug (24.7-32.8); MEAN CORPUSCULAR HGB CONC 33 g/dL (32.3-35.6); MEAN CORPUSCULAR VOLUME 92.5 fL (75.5-95.3); MONOCYTES # (AUTO) 0.5 K/uL (0.1-1.30); MONOCYTES % (AUTO) 4.6 % (0.0-11.0); NEUTROPHILS % (AUTO) 71.4 % (38.5-71.5); PLATELET COUNT (AUTO) 214 K/uL (179-408); RED BLOOD CELL COUNT(AUTO) 4.95 MIL/uL (3.63-4.92); RED CELL DISTRIBUTION WIDTH 13.5 % (12.3-17.7); WHITE BLOOD COUNT (AUTO) 9.8 K/uL (3.8-11.8)
[2024-02-29 15:44] LABS: DIFFERENTIAL COMMENT 1
[2024-02-29 15:50] LABS: CALCIUM 9.2 mg/dL (8.5-10.1); CREATININE 0.6 mg/dL (0.6-1.3); POTASSIUM 4.1 mmol/L (3.5-5.1)
[2024-02-29 15:56] LABS: ALBUMIN 3.6 g/dL (3.4-5.0); BILIRUBIN,DIRECT 0.1 mg/dL (0.0-0.2); BILIRUBIN,TOTAL 0.4 mg/dL (0.2-1.0); TOTAL PROTEIN, SERUM 7.2 g/dL (6.4-8.2)
[2024-02-29] MEDS ORDERED: HYDROCODONE/APAP 5-325MG TABLET ONE (16:16)
[2024-02-29] MEDS: HYDROCODONE/APAP 5-325MG TABLET PO ONE (16:18)
[2024-02-29 17:02] LABS: *BILIRUBIN,URIN NEGATIVE (NEGATIVE); *BLOOD, URINE 3+ (NEGATIVE); *CLARITY,URINE SLIGHTLY CLOUDY (CLEAR); *COLOR,URINE YELLOW (YELLOW); *KETONES,URINE NEGATIVE (NEGATIVE); *PROTEIN,URINE NEGATIVE (NEGATIVE); *UROBILINOGEN,URINE 0.2 E.U./dl (NORMAL); LEUKOCYTE ESTERASE ,URINE TRACE (NEGATIVE); NITRITE, URINE NEGATIVE (NEGATIVE); UGLUCOSE NEGATIVE (NEGATIVE)
[2024-02-29 17:14] LABS: BACTERIA,URINE FEW /HPF (NONE SEEN); SQUAMOUS EPITHELIAL CELL,UR MANY /HPF (NONE SEEN)
[2024-02-29 17:15] LABS: MUCUS,URINE MODERATE /LPF (0-FEW)
[2024-02-29] MEDS ORDERED: NITR100C6 PO (17:39)
[2024-02-29 17:48] VITALS: BP 119/79; TEMP 98; O2SAT 98
== END 2024-02-29 17:49 | disposition home or self-care (01) ==
LOC: ER 14:50
DX: R10.9 Unspecified abdominal pain (principal); F31.9 Bipolar disorder, unspecified; F17.200 Nicotine dependence, unspecified, uncomplicated; R10.2 Pelvic and perineal pain; Z98.890 Other specified postprocedural states; Z79.51 Long term (current) use of inhaled steroids; Z79.891 Long term (current) use of opiate analgesic; Z88.1 Allergy status to other antibiotic agents
CPT/HCPCS: 36415; 83690; 85025; 85610; 85730; A4606; A4663

== ENCOUNTER 2024-07-18 01:49 | Emergency (ER) | payer OTHER ==
[~2024-07-18] VITALS: Ht 160 cm; Wt 122.5 kg
[~2024-07-18 01:49] MED LIST changes: +NITR100C6 PO
[2024-07-18] MEDS ORDERED: diphenhydrAMINE 50 MG/1 ML VIAL ONE (02:25)
[2024-07-18] MEDS ORDERED: METOCLOPRAMIDE HCL 10 MG/2 ML VIAL ONE (02:26)
[2024-07-18] MEDS: METOCLOPRAMIDE HCL 10 MG/2 ML VIAL IM ONE (02:30)
[2024-07-18] MEDS: diphenhydrAMINE 50 MG/1 ML VIAL IM ONE (02:30)
[2024-07-18] MEDS ORDERED: HYDROMORPHONE HCL 2 MG TABLET ONE (02:48)
[2024-07-18] MEDS ORDERED: MAG HYDROX/AL HYDROX/SIMETH 30 ML LIQUID UDC ONE (02:48)
[2024-07-18] MEDS ORDERED: DICYCLOMINE HCL LIQ 10 MG/5 ML UDC ONE (02:48)
[2024-07-18] MEDS ORDERED: LIDOCAINE VISCUS 2% 15 ML UDC ONE (02:48)
[2024-07-18] MEDS: DICYCLOMINE HCL LIQ 10 MG/5 ML UDC PO ONE (03:05)
[2024-07-18] MEDS: LIDOCAINE VISCUS 2% 15 ML UDC MM ONE (03:05)
[2024-07-18] MEDS: MAG HYDROX/AL HYDROX/SIMETH 30 ML LIQUID UDC PO ONE (03:05)
[2024-07-18] MEDS: HYDROMORPHONE HCL 2 MG TABLET PO ONE (03:06)
[2024-07-18] MEDS ORDERED: DICY20TA11 PO (03:33)
[2024-07-18 03:51] VITALS: BP 100/59; O2SAT 97
== END 2024-07-18 03:45 | disposition home or self-care (01) ==
LOC: ER 02:02
DX: G89.29 Other chronic pain (principal); R10.13 Epigastric pain; F31.9 Bipolar disorder, unspecified; F41.9 Anxiety disorder, unspecified; F17.210 Nicotine dependence, cigarettes, uncomplicated; Z96.641 Presence of right artificial hip joint; Z79.899 Other long term (current) drug therapy; Z88.7 Allergy status to serum and vaccine
CPT/HCPCS: 99284; 99406; 96372 ×2; J1200; J2765; A4606; A4663